=== PATIENT | male | born 1970 | race Two or more races ===

== ENCOUNTER 2019-02-22 20:38 | Inpatient (IN) | payer OTHER ==
[2019-02-22 21:55] VITALS: BMI 30.4
--- NOTE | 2019-02-22 23:22 | HP ---
CIWA Score Nausea/Vomitin Muscle Tremors: 4-Moderate,w/Arms Extend Anxiety: 4-Mod. Anxious/Guarded Agitation: 4-Moderately Restless Paroxysmal Sweats: 3 Orientation: 1-Uncertain about Date Tacttile Disturbances: 2-Mild Itch/Numbness/Burn Auditory Disturbances: 2-Mild Harshness/Frighten (to loud noise) Visual Disturbances: 3-Moderate Sensitivity Headache: 5-Severe CIWA-Ar Total Score: 33 - Admission Criteria OASAS Guidelines: Admission for Medically Managed Detox: Requires at least one of the followin. CIWA greater than 12 2. Seizures within the past 24 hours 3. Delirium tremens within the past 24 hours 4. Hallucinations within the past 24 hours 5. Acute intervention needed for co occurring medical disorder 6. Acute intervention needed for co occurring psychiatric disorder 7. Severe withdrawal that cannot be handled at a lower level of care (continued vomiting, continued diarrhea, abnormal vital signs) requiring intravenous medication and/or fluids 8. Patient presents the following: CIWA greater than 12 Admission Criteria Met: Admission criteria met Admitting History and Physical - Smoking History Smoking history: Never smoked Have you smoked in the past 12 months: No - Alcohol/Substance Use Hx Alcohol Use: Yes (VODKA/WINE/BEER) Admission [facility] Chief Complaint: SEEKING DETOX FOR WORSENING WITHDRAWAL SX'S Allergies/Adverse Reactions: Allergies Allergy/AdvReac Type Severity Reaction Status Date / Time No Known Allergies Allergy Verified 12/25/15 17:29 History of Present Illness: 49 Y.O. MALE WITH ALCOHOLISM HERE FOR DETOX. CLIENT IS REFERRED BY HIS [facility]. HE IS ALSO KNOWN TO THIS PROGRAM. LAST ADMIT 2015. CLIENT DEIES ANY INAPTIENT DETOX SINCE. REPORTS DAILY INTAKE + EYE [employer], + BLACK OUTS, + WITHDRAWAL SEIZURES LAST EPISODE 3 MONTHS AGO. DENIES AVH, SI/HI.REPORTS LONGEST CLEAN TIME 10 YEARS MOST RECENT 1 YEAR RELAPSING A YEAR AGO. LIVES SRO-HOMLESS, UNEMPLOYED- SSI, DENIES LEGALS Exam Limitations: No Limitations - Ebola screening Have you traveled outside of the country in the last 21 days: No (N) Have you had contact with anyone from an Ebola affected area: No Do you have a fever: No - Review of Systems Constitutional: Chills, Loss of Appetite, Malaise, Night Sweats, Changes in sleep EENT: reports: Dental Problems (MISSING TEETH), Throat Pain (SORE) Respiratory: reports: Shortness of Breath Cardiac: reports: No Symptoms Reported, Other (RLE SWELLING) GI: reports: Diarrhea, Nausea, Poor Fluid Intake, Vomiting, Abdominal cramping : reports: No Symptoms Reported Musculoskeletal: reports: Back Pain (CHRONIC) Integumentary: reports: No Symptoms Reported Neuro: reports: Headache, Seizure, Tremors, Unsteady Gait ([place]BUALTES WITH CANE) Endocrine: reports: No Symptoms Reported Hematology: reports: No Symptoms Reported Psychiatric: reports: Orientated x3, Agitated, Anxious, Depressed (DENIES SI/HI) Other Systems: Reviewed and Negative Patient History - Patient Medical History Hx Anemia: No Hx Asthma: Yes (ALBUTEROL INHALER) Hx Chronic Obstructive Pulmonary Disease (COPD): No Hx Cancer: No Hx Cardiac Disorders: No Hx Congestive Heart Failure: No Hx Hypertension: Yes (ON MEDS) Hx Hypercholesterolemia: No Hx Pacemaker: No HX Cerebrovascular Accident: No Hx Seizures: No Hx Dementia: No Hx Diabetes: No Hx Gastrointestinal Disorders: Yes (GERD-PRILOSEC) Hx Liver Disease: No Hx Genitourinary Disorders: No Hx Sexually Transmitted Disorders: No Hx Renal Disease (ESRD): No Hx Thyroid Disease: No Hx Human Immunodeficiency Virus (HIV): Yes (ON MEDS) Hx Hepatitis C: No Hx Depression: Yes (ON MED) Hx Suicide Attempt: No (DENIES) Hx Bipolar Disorder: No Hx Schizophrenia: No - Patient Surgical History Past Surgical History: Yes Hx Neurologic Surgery: No Hx Cataract Extraction: No Hx Cardiac Surgery: No Hx Lung Surgery: No Hx Breast Surgery: No Hx Breast Biopsy: No Hx Abdominal Surgery: Yes (Gastric lap band in 2013) Hx Appendectomy: Yes (1985) Hx Cholecystectomy: No Hx Genitourinary Surgery: No Hx Section: No Hx Orthopedic Surgery: Yes (Partial knee replacement in 05/25) Other Surgical History: RIGHT SHOULDER LIPOMA REMOVED IN 1984 Anesthesia Reaction: No - PPD History Previous Implant?: Yes Documented Results: Negative w/proof Implanted On Prior [facility] Admission?: Yes Date: 03/01/15 Results: 0 mm PPD to be Administered?: Yes - Smoking Cessation Smoking history: Current some day smoker Have you smoked in the past 12 months: Yes Aproximately how many cigarettes per day: 4 Cigars Per Day: 0 Hx Chewing Tobacco Use: No Initiated information on smoking cessation: Yes 'Breaking Loose' booklet given: 02/22/19 - Substance & Tx. History Hx Alcohol Use: Yes Hx Substance Use: Yes Substance Use Type: Alcohol, Cocaine Hx Substance Use Treatment: Yes ([facility]) - Substances abused Alcohol Substance route: Oral Frequency: Daily Amount used: 1 pint and 6 pack of beer Age of first use: 29 Date of last use: 02/22/19 Cocaine Substance route: Smoking Frequency: 3-6 times per week Amount used: 2 to 10 bags Age of first use: 29 Date of last use: 02/21/19 Other Other (specify): PERCOCET Substance route: Oral Frequency: 3-6 times per week Amount used: 10 tabs of 10 mg Age of first use: 29 Date of last use: 02/19/19 Admission Physical Exam BHS - Vital Signs Vital Signs: Vital Signs - 24 hr 02/22/19 21:50 Temperature 98.6 F Pulse Rate 74 Respiratory 19 Rate Blood Pressure 145/97 - Physical General Appearance: Yes: Mild Distress, Tremorous, Irritable, Anxious HEENTM: Yes: EOMI, Normocephalic, Normal Voice, CASANDRA, Pharynx Normal Respiratory: Yes: Chest Non-Tender, Lungs Clear, Normal Breath Sounds, No Respiratory Distress, No Accessory Muscle Use Neck: Yes: No masses,lesions,Nodules, Supple, Trachea in good position Breast: Yes: Breasts Symetrical, No Discharge Cardiology: Yes: Regular Rhythm, Regular Rate, S1, S2 Abdominal: Yes: Non Tender, Soft, Increased Bowel Sounds, Protuberent Genitourinary: Yes: Within Normal Limits Back: Yes: Normal Inspection Musculoskeletal: Yes: full range of Motion, Gait Steady Extremities: Yes: Normal Capillary Refill, Normal Range of Motion, Non-Tender, Tremors Neurological: Yes: Fully Oriented, Alert, Motor Strength 5/5, Depressed Affect Integumentary: Yes: Dry, Warm Lymphatic: Yes: Within Normal Limits - Diagnostic (1) Insomnia Current Visit: No Status: Acute (2) Alcohol dependence with uncomplicated withdrawal Current Visit: No Status: Chronic (3) Asthma Current Visit: No Status: Chronic Qualifiers: Asthma severity: mild intermittent Asthma complication type: uncomplicated Qualified Code(s): J45.20 - Mild intermittent asthma, uncomplicated (4) Cocaine dependence Current Visit: No Status: Chronic Qualifiers: Substance use status: uncomplicated Qualified Code(s): F14.20 - Cocaine dependence, uncomplicated (5) GERD (gastroesophageal reflux disease) Current Visit: No Status: Chronic Qualifiers: Esophagitis presence: without esophagitis Qualified Code(s): K21.9 - Gastro -esophageal reflux disease without esophagitis (6) HIV disease Current Visit: No Status: Chronic (7) Hypertension Current Visit: No Status: Chronic Qualifiers: Hypertension type: essential hypertension Qualified Code(s): I10 - Essential (primary) hypertension Cleared for Admission S - Detox or Rehab [facility] Level of Care: Medically Managed Detox Regimen/Protocol: Librium Claeared for Rehab Admission: No Breathalyzer - Breathalyzer Breathalyzer: 0 Urine Drug Screen - Test Device Lot number: [id number] Expiration date: 10/08/20 - Control Is test valid?: Yes - Results Drug screen NEGATIVE: Yes Urine drug screen results: ROSALVA-Cocaine, BUP-Suboxone Inpatient Rehab Admission - Rehab Decision to Admit Inpatient rehab admission?: No
[2019-02-22] MEDS ORDERED: ALBUTEROL SO4 8 GM HFA INHALER IH PRN (23:26)
[2019-02-22] MEDS ORDERED: MAG HYDROX/AL HYDROX/SIMETH 30 ML UNIT-DOSE CUP PO PRN (23:28)
[2019-02-22] MEDS ORDERED: ACETAMINOPHEN 325 MG TABLET (FP) PO PRN ×2 (23:28)
[2019-02-22] MEDS ORDERED: P-EPHED 60MG/TRIPROLIDI 2.5MG TABLET PO PRN (23:28)
[2019-02-22] MEDS ORDERED: MENTHOL/PHENOL 1 EACH UD MM PRN (23:28)
[2019-02-22] MEDS ORDERED: NICOTINE POLACRILEX 2 MG GUM BUC PRN (23:28)
[2019-02-22] MEDS ORDERED: guaiFENesin 200 MG/10 ML 10 ML UNIT-DOSE CUPS PO PRN (23:28)
[2019-02-22] MEDS ORDERED: MAGNESIUM CITRATE 300 ML BOTTLE PO PRN (23:28)
[2019-02-22] MEDS ORDERED: BISMUTH SUBSALICYLATE 524 MG/30 ML UD PO PRN (23:28)
[2019-02-22] MEDS ORDERED: DICYCLOMINE HCL 10 MG CAPSULE PO PRN (23:28)
[2019-02-22] MEDS ORDERED: hydrOXYzine PAMOATE 25 MG CAPSULE (FP) PO PRN (23:28)
[2019-02-22] MEDS ORDERED: chlordiazePOXIDE HCL 25 MG CAPSULE PO PRN (23:28)
[2019-02-23] MEDS: MELATONIN 5 MG TABLETS PO PRN ×2 (00:37→22:21)
[2019-02-23] MEDS: METHOCARBAMOL 500 MG TABLET PO PRN (00:37)
[2019-02-23] MEDS: IBUPROFEN 400 MG TABLET (FP) PO PRN (00:38)
[2019-02-23] MEDS: chlordiazePOXIDE HCL 25 MG CAPSULE PO SCH ×5 (00:48→22:21)
[2019-02-23] MEDS: PREGABALIN 100 MG CAPSULE PO SCH ×3 (05:30→22:21)
[2019-02-23] MEDS: hydrALAZINE HCL 50 MG TABLET (FP) PO SCH ×3 (06:00→22:21)
[2019-02-23] MEDS ORDERED: valACYclovir HCL 500 MG TABLET (FP) ONE (08:28)
[2019-02-23] MEDS ORDERED: valACYclovir HCL 1000 MG TABLET PO SCH (10:00)
[2019-02-23] MEDS: NICOTINE 14 MG/24 HOURS TOPICAL PATCH TD SCH (10:33)
[2019-02-23] MEDS: PRENATAL VITAMINS W/ FOLIC ACID TABLET (FP) PO SCH (10:34)
[2019-02-23] MEDS: PANTOPRAZOLE 40 MG TABLET (FP) PO SCH (10:34)
--- NOTE | 2019-02-23 10:49 | CONSULT ---
[facility] Psychiatric Consult - Data Date of interview: 02/23/19 Admission source: [facility] Identifying data: Readmission to [facility] for this 49 y/o male referred by his [facility] management for detoxification (JELANI issues : alcohol, cocaine , opiate). Examined at [address] [place] [address]. Patient is single, no children, domiciled ([facility] setting), unemployed and supported on SSI benefits. Substance Abuse History: Discussed in this session. Details in current [facility] report as follows : Smoking history: Current some day smoker. Have you smoked in the past 12 months: Yes. Aproximately how many cigarettes per day: 4. Cigars Per Day: 0. Hx Chewing Tobacco Use: No. Initiated information on smoking cessation: Yes. 'Breaking Loose' booklet given: 02/22/19. - Substance & Tx. History. Hx Alcohol Use: Yes. Hx Substance Use: Yes. Substance Use Type : Alcohol, Cocaine. Hx Substance Use Treatment: Yes ([facility]). - Substances abused. Alcohol. Substance route: Oral. Frequency: Daily. Amount used: 1 pint and 6 pack of beer. Age of first use: 29. Date of last use: 02/22/19. * * Cocaine. Substance route: Smoking. Frequency: 3-6 times per week. Amount used: 2 to 10 bags. Age of first use: 29. Date of last use: 02/21/19. Other. Other (specify): PERCOCET. Substance route: Oral. Frequency: 3-6 times per week. Amount used: 10 tabs of 10 mg. Age of first use: 29. Date of last use: 02/19/19 Medical History: Medical profile is remarkable for bronchial asthma, peripheral neuropathy, HIV infection since 1992 (on ART medications), hypertension, antecedent of abdominal surgery (gastric lap band in 2013), appendectomy, GERD, and history of orthosurgery (partial knee replacement) in 2014. Noted history of excision of lipoma (right shoulder). Psychiatric History: History of two psychiatric hospitalizations ([facility] + [facility]). Diagnosed with Major Depressive Disorder. Mr Kraus has received treatment with effexor + abilify (no recall of doses). Patient reports total non-adherence with medications and OPD care. He denies history of suicide attempts. Additional Comment: Urine drug screen results: ROSALVA-Cocaine, BUP-Suboxone. Noted. Mental Status Exam - Mental Status Exam Alert and Oriented to: Time, Place, Person Cognitive Function: Good Patient Appearance: Well Groomed Mood: Nervous, Withdrawn Affect: Mood Congruent, Constricted Patient Behavior: Fatigued, Appropriate, Cooperative Speech Pattern: Clear Voice Loudness: Normal Thought Process: Goal Oriented Thought Disorder: Not Present Hallucinations: Denies Suicidal Ideation: Denies Homicidal Ideation: Denies Insight/Judgement: Poor Sleep: Poorly, Difficulty falling asleep Appetite: Good Muscle strength/Tone: Normal Gait/Station: Other (not observed; in bed for entire interview) Psychiatric Findings - Problem List ([place] 1, 2,3) (1) Alcohol dependence with uncomplicated withdrawal Current Visit: Yes Status: Acute (2) Heroin dependence Current Visit: Yes Status: Chronic (3) Cocaine dependence Current Visit: Yes Status: Chronic Qualifiers: Substance use status: uncomplicated Qualified Code(s): F14.20 - Cocaine dependence, uncomplicated (4) Cannabis dependence Current Visit: Yes Status: Chronic (5) MDD (major depressive disorder), recurrent episode, mild Current Visit: Yes Status: Chronic (6) Substance induced mood disorder Current Visit: Yes Status: Chronic (7) Insomnia Current Visit: Yes Status: Chronic - Initial Treatment Plan Initial Treatment Plan: Psychoeducation. Sleep hygiene. Detoxification. Resumed : abilify 5 mg po hs + effexor 37.5 mg po daily. Side effects/benefits of both drugs are discussed with the patient. Mr Kraus is in agreement with this plan of care. Observation.
[2019-02-23 12:01] LABS: HEMATOCRIT 45.2 % (35.4-49); HEMOGLOBIN 15.3 GM/dL (11.7-16.9); MCH 29.3 pg (25.7-33.7); MEAN CELL VOLUME 86.2 fl (80-96); MEAN PLT VOLUME 9.2 fl (7.5-11.1); PLATELET COUNT 179 K/MM3 (134-434); RBC 5.25 M/mm3 (4.00-5.60); RDW 13.4 % (11.9-15.9); WHITE BLOOD COUNT 3.4 K/mm3 (4.0-10.0)
[2019-02-23 12:11] LABS: ALBUMIN 3.1 g/dl (3.4-5.0); BILIRUBIN,TOTAL 0.4 mg/dL (0.2-1); BLOOD UREA NITROGEN 10.2 mg/dL (7-18); CALCIUM 8.7 mg/dL (8.5-10.1); CREATININE 1.2 mg/dL (0.55-1.3); POTASSIUM 3.5 mmol/L (3.5-5.1); TOT PROT 6.2 g/dl (6.4-8.2)
--- NOTE | 2019-02-23 15:31 | PN ---
S CIWA - CIWA Score Nausea/Vomitin-Int. Nausea w/Dry Heave Muscle Tremors: 4-Moderate,w/Arms Extend Anxiety: 3 Agitation: 0-Normal Activity Paroxysmal Sweats: 2 Orientation: 0-Oriented Tacttile Disturbances: 1-Very Mild Itch/Numbness Auditory Disturbances: 0-None Visual Disturbances: 0-None Headache: 1-Very Mild CIWA-Ar Total Score: 15 BHS Progress Note (SOAP) Subjective: c/o of nausea, vomiting, chills, sweats, interrupted sleep Objective: 02/23/19 15:33 Vital Signs Temperature 96.7 F L 02/23/19 13:13 Pulse Rate 93 H 02/23/19 13:13 Respiratory Rate 18 02/23/19 13:13 Blood Pressure 117/83 02/23/19 13:13 O2 Sat by Pulse Oximetry (%) Laboratory Last Values WBC 3.4 K/mm3 (4.0-10.0) L 02/23/19 08:33 RBC 5.25 M/mm3 (4.00-5.60) 02/23/19 08:33 Hgb 15.3 GM/dL (11.7-16.9) 02/23/19 08:33 Hct 45.2 % (35.4-49) 02/23/19 08:33 MCV 86.2 fl (80-96) 02/23/19 08:33 MCH 29.3 pg (25.7-33.7) D 02/23/19 08:33 MCHC 34.0 g/dl (32.0-35.9) 02/23/19 08:33 RDW 13.4 % (11.9-15.9) 02/23/19 08:33 Plt Count 179 K/MM3 (134-434) 02/23/19 08:33 MPV 9.2 fl (7.5-11.1) 02/23/19 08:33 Sodium 144 mmol/L (136-145) 02/23/19 08:33 Potassium 3.5 mmol/L (3.5-5.1) 02/23/19 08:33 Chloride 109 mmol/L (98-107) H 02/23/19 08:33 Carbon Dioxide 29 mmol/L (21-32) 02/23/19 08:33 Anion Gap 6 MMOL/L (8-16) L 02/23/19 08:33 BUN 10.2 mg/dL (7-18) 02/23/19 08:33 Creatinine 1.2 mg/dL (0.55-1.3) 02/23/19 08:33 Est GFR (CKD-EPI)AfAm 81.23 02/23/19 08:33 Est GFR (CKD-EPI)NonAf 70.09 02/23/19 08:33 Random Glucose 107 mg/dL (74-106) H 02/23/19 08:33 Calcium 8.7 mg/dL (8.5-10.1) 02/23/19 08:33 Total Bilirubin 0.4 mg/dL (0.2-1) 02/23/19 08:33 AST 19 U/L (15-37) 02/23/19 08:33 ALT 20 U/L (13-61) 02/23/19 08:33 Alkaline Phosphatase 93 U/L (45-117) 02/23/19 08:33 Total Protein 6.2 g/dl (6.4-8.2) L 02/23/19 08:33 Albumin 3.1 g/dl (3.4-5.0) L 02/23/19 08:33 Assessment: 02/23/19 15:33 Aox3 no acute distress, anxious EENT WNL full ROM ambulating in the unit withdrawal sx Plan: increase PO fluids continue detox continue to monitor
[2019-02-23] MEDS: ARIPiprazole 5 MG TABLET (FP) PO SCH (22:21)
[2019-02-23] MEDS: valACYclovir HCL 500 MG TABLET (FP) PO SCH (22:21)
[2019-02-23] MEDS: THIAMINE HCL 100 MG TABLET (FP) PO SCH (22:21)
[2019-02-24] MEDS: PREGABALIN 100 MG CAPSULE PO SCH ×3 (06:01→21:54)
[2019-02-24] MEDS: chlordiazePOXIDE HCL 25 MG CAPSULE PO SCH ×4 (06:01→21:59)
[2019-02-24] MEDS: hydrALAZINE HCL 50 MG TABLET (FP) PO SCH ×3 (06:02→21:54)
[2019-02-24] MEDS: PRENATAL VITAMINS W/ FOLIC ACID TABLET (FP) PO SCH (10:38)
[2019-02-24] MEDS: VENLAFAXINE HCL 37.5 MG E.R. CAPSULE (FP) PO SCH (10:38)
[2019-02-24] MEDS: valACYclovir HCL 500 MG TABLET (FP) PO SCH ×2 (10:38→21:54)
[2019-02-24] MEDS: PANTOPRAZOLE 40 MG TABLET (FP) PO SCH (10:38)
[2019-02-24] MEDS: NICOTINE 14 MG/24 HOURS TOPICAL PATCH TD SCH (10:39)
--- NOTE | 2019-02-24 11:12 | PN ---
[facility] CIWA - CIWA Score Nausea/Vomitin-Mild Nausea/No Vomiting Muscle Tremors: 3 Anxiety: 3 Agitation: 2 Paroxysmal Sweats: 2 Orientation: 1-Uncertain about Date Tacttile Disturbances: 0-None Auditory Disturbances: 0-None Visual Disturbances: 0-None Headache: 0-None Present CIWA-Ar Total Score: 12 S Progress Note (SOAP) Subjective: doing well with librium detox regimen ate breakfast resting on bed comfortably tolerate food and fluid well Objective: 02/24/19 11:12 Vital Signs Temperature 97.0 F L 02/24/19 09:17 Pulse Rate 91 H 02/24/19 09:17 Respiratory Rate 18 02/24/19 09:17 Blood Pressure 137/71 02/24/19 09:17 O2 Sat by Pulse Oximetry (%) Laboratory Last Values WBC 3.4 K/mm3 (4.0-10.0) L 02/23/19 08:33 RBC 5.25 M/mm3 (4.00-5.60) 02/23/19 08:33 Hgb 15.3 GM/dL (11.7-16.9) 02/23/19 08:33 Hct 45.2 % (35.4-49) 02/23/19 08:33 MCV 86.2 fl (80-96) 02/23/19 08:33 MCH 29.3 pg (25.7-33.7) D 02/23/19 08:33 MCHC 34.0 g/dl (32.0-35.9) 02/23/19 08:33 RDW 13.4 % (11.9-15.9) 02/23/19 08:33 Plt Count 179 K/MM3 (134-434) 02/23/19 08:33 MPV 9.2 fl (7.5-11.1) 02/23/19 08:33 Sodium 144 mmol/L (136-145) 02/23/19 08:33 Potassium 3.5 mmol/L (3.5-5.1) 02/23/19 08:33 Chloride 109 mmol/L (98-107) H 02/23/19 08:33 Carbon Dioxide 29 mmol/L (21-32) 02/23/19 08:33 Anion Gap 6 MMOL/L (8-16) L 02/23/19 08:33 BUN 10.2 mg/dL (7-18) 02/23/19 08:33 Creatinine 1.2 mg/dL (0.55-1.3) 02/23/19 08:33 Est GFR (CKD-EPI)AfAm 81.23 02/23/19 08:33 Est GFR (CKD-EPI)NonAf 70.09 02/23/19 08:33 Random Glucose 107 mg/dL (74-106) H 02/23/19 08:33 Calcium 8.7 mg/dL (8.5-10.1) 02/23/19 08:33 Total Bilirubin 0.4 mg/dL (0.2-1) 02/23/19 08:33 AST 19 U/L (15-37) 02/23/19 08:33 ALT 20 U/L (13-61) 02/23/19 08:33 Alkaline Phosphatase 93 U/L (45-117) 02/23/19 08:33 Total Protein 6.2 g/dl (6.4-8.2) L 02/23/19 08:33 Albumin 3.1 g/dl (3.4-5.0) L 02/23/19 08:33 lab noted Assessment: 02/24/19 11:12 alcohol withdrawal sx Plan: continue libirum detox regimen
[2019-02-24] MEDS: METHOCARBAMOL 500 MG TABLET PO PRN (21:53)
[2019-02-24] MEDS: ARIPiprazole 5 MG TABLET (FP) PO SCH (21:54)
[2019-02-24] MEDS: THIAMINE HCL 100 MG TABLET (FP) PO SCH (21:54)
[2019-02-24] MEDS: MELATONIN 5 MG TABLETS PO PRN (21:55)
[2019-02-25] MEDS ORDERED: chlordiazePOXIDE HCL 10 MG CAPSULE PO PRN
[2019-02-25] MEDS: hydrALAZINE HCL 50 MG TABLET (FP) PO SCH ×3 (05:23→22:14)
[2019-02-25] MEDS: PREGABALIN 100 MG CAPSULE PO SCH ×3 (05:23→22:12)
[2019-02-25] MEDS: chlordiazePOXIDE HCL 10 MG CAPSULE PO SCH ×4 (05:24→22:13)
[2019-02-25] MEDS: valACYclovir HCL 500 MG TABLET (FP) PO SCH ×2 (10:16→22:12)
[2019-02-25] MEDS: VENLAFAXINE HCL 37.5 MG E.R. CAPSULE (FP) PO SCH (10:17)
[2019-02-25] MEDS: NICOTINE 14 MG/24 HOURS TOPICAL PATCH TD SCH (10:17)
[2019-02-25] MEDS: PRENATAL VITAMINS W/ FOLIC ACID TABLET (FP) PO SCH (10:17)
[2019-02-25] MEDS: PANTOPRAZOLE 40 MG TABLET (FP) PO SCH (10:17)
[2019-02-25] MEDS: MAGNESIUM HYDROX 2400MG/30ML ORAL SUSPENSION 30 ML CUP PO PRN ×2 (10:22→16:21)
[2019-02-25] MEDS: METHOCARBAMOL 500 MG TABLET PO PRN (10:23)
[2019-02-25] MEDS: ONDANSETRON *ODT* 4 MG TABLET SL PRN (10:23)
--- NOTE | 2019-02-25 11:59 | PN ---
S CIWA - CIWA Score Nausea/Vomitin Muscle Tremors: 2 Anxiety: 2 Agitation: 1-Slight > Activity Paroxysmal Sweats: 3 Orientation: 0-Oriented Tacttile Disturbances: 1-Very Mild Itch/Numbness Auditory Disturbances: 0-None Visual Disturbances: 1-Very Mild Sensitivity Headache: 0-None Present CIWA-Ar Total Score: 13 BHS Progress Note (SOAP) Subjective: c/o nausea, interrupted sleep, back pain Objective: 02/25/19 12:02 Vital Signs Temperature 97.8 F 02/25/19 09:24 Pulse Rate 75 02/25/19 09:24 Respiratory Rate 18 02/25/19 09:24 Blood Pressure 128/83 02/25/19 09:24 O2 Sat by Pulse Oximetry (%) Laboratory Last Values WBC 3.4 K/mm3 (4.0-10.0) L 02/23/19 08:33 RBC 5.25 M/mm3 (4.00-5.60) 02/23/19 08:33 Hgb 15.3 GM/dL (11.7-16.9) 02/23/19 08:33 Hct 45.2 % (35.4-49) 02/23/19 08:33 MCV 86.2 fl (80-96) 02/23/19 08:33 MCH 29.3 pg (25.7-33.7) D 02/23/19 08:33 MCHC 34.0 g/dl (32.0-35.9) 02/23/19 08:33 RDW 13.4 % (11.9-15.9) 02/23/19 08:33 Plt Count 179 K/MM3 (134-434) 02/23/19 08:33 MPV 9.2 fl (7.5-11.1) 02/23/19 08:33 Sodium 144 mmol/L (136-145) 02/23/19 08:33 Potassium 3.5 mmol/L (3.5-5.1) 02/23/19 08:33 Chloride 109 mmol/L (98-107) H 02/23/19 08:33 Carbon Dioxide 29 mmol/L (21-32) 02/23/19 08:33 Anion Gap 6 MMOL/L (8-16) L 02/23/19 08:33 BUN 10.2 mg/dL (7-18) 02/23/19 08:33 Creatinine 1.2 mg/dL (0.55-1.3) 02/23/19 08:33 Est GFR (CKD-EPI)AfAm 81.23 02/23/19 08:33 Est GFR (CKD-EPI)NonAf 70.09 02/23/19 08:33 Random Glucose 107 mg/dL (74-106) H 02/23/19 08:33 Calcium 8.7 mg/dL (8.5-10.1) 02/23/19 08:33 Total Bilirubin 0.4 mg/dL (0.2-1) 02/23/19 08:33 AST 19 U/L (15-37) 02/23/19 08:33 ALT 20 U/L (13-61) 02/23/19 08:33 Alkaline Phosphatase 93 U/L (45-117) 02/23/19 08:33 Total Protein 6.2 g/dl (6.4-8.2) L 02/23/19 08:33 Albumin 3.1 g/dl (3.4-5.0) L 02/23/19 08:33 RPR Titer Nonreactive (NONREACTIVE) 02/23/19 08:33 Assessment: 02/25/19 12:02 AOx3 no acute distress EENMT WNL + back pain Full ROM no gait disturbance ambulating in the unit withdrawal sx Plan: increase po fluids continue detox continue to monitor
[2019-02-25] MEDS: ARIPiprazole 5 MG TABLET (FP) PO SCH (22:13)
[2019-02-25] MEDS: THIAMINE HCL 100 MG TABLET (FP) PO SCH (22:13)
[2019-02-25] MEDS: MELATONIN 5 MG TABLETS PO PRN (22:16)
--- NOTE | 2019-02-25 22:19 | EKG ---
Test Reason : Blood Pressure : / mmHG Vent. Rate : 067 BPM Atrial Rate : 067 BPM P-R Int : 472 ms QRS Dur : 092 ms QT Int : 408 ms P-R-T Axes : 066 017 022 degrees QTc Int : 431 ms SINUS RHYTHM WITH 1ST DEGREE A-V BLOCK OTHERWISE NORMAL ECG NO PREVIOUS ECGS AVAILABLE Confirmed by MD HEIDY, JEANNIE ([id number]) on 02/25/2019 10:18:57 PM Referred By: Alonso Funk Confirmed By:JEANNIE MOODY MD
[2019-02-26] MEDS: PREGABALIN 100 MG CAPSULE PO SCH ×3 (06:11→22:17)
[2019-02-26] MEDS: hydrALAZINE HCL 50 MG TABLET (FP) PO SCH ×3 (06:11→22:15)
[2019-02-26] MEDS: chlordiazePOXIDE HCL 10 MG CAPSULE PO SCH ×2 (06:12→17:43)
[2019-02-26] MEDS: valACYclovir HCL 500 MG TABLET (FP) PO SCH ×2 (10:42→22:15)
[2019-02-26] MEDS: NICOTINE 14 MG/24 HOURS TOPICAL PATCH TD SCH (10:42)
[2019-02-26] MEDS: PRENATAL VITAMINS W/ FOLIC ACID TABLET (FP) PO SCH (10:43)
[2019-02-26] MEDS: PANTOPRAZOLE 40 MG TABLET (FP) PO SCH (10:43)
[2019-02-26] MEDS: VENLAFAXINE HCL 37.5 MG E.R. CAPSULE (FP) PO SCH (10:43)
--- NOTE | 2019-02-26 12:49 | PN ---
S CIWA - CIWA Score Nausea/Vomitin-Mild Nausea/No Vomiting Muscle Tremors: 2 Anxiety: 2 Agitation: 2 Paroxysmal Sweats: 2 Orientation: 0-Oriented Tacttile Disturbances: 0-None Auditory Disturbances: 0-None Visual Disturbances: 0-None Headache: 1-Very Mild CIWA-Ar Total Score: 10 BHS Progress Note (SOAP) Objective: Pt admitted for alcohol detox, no complaints today. O: Vital Signs - 24 hr 02/25/19 02/25/19 02/25/19 13:38 17:46 21:20 Temperature 97.3 F L 97.7 F 96.8 F L Pulse Rate 101 H 80 73 Respiratory 18 18 18 Rate Blood Pressure 124/86 123/79 144/90 02/26/19 02/26/19 02/26/19 00:30 03:30 06:06 Temperature 97.4 F L Pulse Rate 76 Respiratory 18 18 18 Rate Blood Pressure 145/90 02/26/19 09:47 Temperature 97.5 F L Pulse Rate 80 Respiratory 18 Rate Blood Pressure 139/97 Laboratory Tests 02/23/19 02/23/19 02/23/19 08:33 08:33 08:33 WBC 3.4 L RBC 5.25 Hgb 15.3 Hct 45.2 MCV 86.2 MCH 29.3 D MCHC 34.0 RDW 13.4 Plt Count 179 MPV 9.2 Sodium 144 Potassium 3.5 Chloride 109 H Carbon Dioxide 29 Anion Gap 6 L BUN 10.2 Creatinine 1.2 Est GFR (CKD-EPI)AfAm 81.23 Est GFR (CKD-EPI)NonAf 70.09 Random Glucose 107 H Calcium 8.7 Total Bilirubin 0.4 AST 19 ALT 20 Alkaline Phosphatase 93 Total Protein 6.2 L Albumin 3.1 L RPR Titer Nonreactive a/p: pt to continue alcohol detox protocol- no complaints today
[2019-02-26] MEDS: IBUPROFEN 400 MG TABLET (FP) PO PRN (15:25)
[2019-02-26] MEDS: METHOCARBAMOL 500 MG TABLET PO PRN ×2 (15:26→22:17)
[2019-02-26] MEDS: ONDANSETRON *ODT* 4 MG TABLET SL PRN (18:49)
[2019-02-26] MEDS: THIAMINE HCL 100 MG TABLET (FP) PO SCH (22:15)
[2019-02-26] MEDS: ARIPiprazole 5 MG TABLET (FP) PO SCH (22:15)
[2019-02-26] MEDS: MELATONIN 5 MG TABLETS PO PRN (22:17)
[2019-02-27] MEDS ORDERED: chlordiazePOXIDE HCL 10 MG CAPSULE PO ONE (05:00)
[2019-02-27] MEDS: PREGABALIN 100 MG CAPSULE PO SCH ×3 (05:18→22:15)
[2019-02-27] MEDS: hydrALAZINE HCL 50 MG TABLET (FP) PO SCH ×3 (05:19→22:15)
[2019-02-27] MEDS: PRENATAL VITAMINS W/ FOLIC ACID TABLET (FP) PO SCH (10:49)
[2019-02-27] MEDS: PANTOPRAZOLE 40 MG TABLET (FP) PO SCH (10:49)
[2019-02-27] MEDS: VENLAFAXINE HCL 37.5 MG E.R. CAPSULE (FP) PO SCH (10:49)
[2019-02-27] MEDS: valACYclovir HCL 500 MG TABLET (FP) PO SCH ×2 (10:49→22:16)
[2019-02-27] MEDS: NICOTINE 14 MG/24 HOURS TOPICAL PATCH TD SCH (10:49)
--- NOTE | 2019-02-27 11:21 | DS ---
[facility] Detox Discharge Summary Admission Date: 02/23/19 - Physical Exam Results Vital Signs: Vital Signs Temperature 97.9 F 02/27/19 09:50 Pulse Rate 77 02/27/19 09:50 Respiratory Rate 18 02/27/19 09:50 Blood Pressure 142/98 02/27/19 09:50 O2 Sat by Pulse Oximetry (%) Pertinent Admission Physical Exam Findings: ate breakfast no trouble chewing swallowing alcohol withdrawal sx Laboratory Last Values WBC 3.4 K/mm3 (4.0-10.0) L 02/23/19 08:33 RBC 5.25 M/mm3 (4.00-5.60) 02/23/19 08:33 Hgb 15.3 GM/dL (11.7-16.9) 02/23/19 08:33 Hct 45.2 % (35.4-49) 02/23/19 08:33 MCV 86.2 fl (80-96) 02/23/19 08:33 MCH 29.3 pg (25.7-33.7) D 02/23/19 08:33 MCHC 34.0 g/dl (32.0-35.9) 02/23/19 08:33 RDW 13.4 % (11.9-15.9) 02/23/19 08:33 Plt Count 179 K/MM3 (134-434) 02/23/19 08:33 MPV 9.2 fl (7.5-11.1) 02/23/19 08:33 Sodium 144 mmol/L (136-145) 02/23/19 08:33 Potassium 3.5 mmol/L (3.5-5.1) 02/23/19 08:33 Chloride 109 mmol/L (98-107) H 02/23/19 08:33 Carbon Dioxide 29 mmol/L (21-32) 02/23/19 08:33 Anion Gap 6 MMOL/L (8-16) L 02/23/19 08:33 BUN 10.2 mg/dL (7-18) 02/23/19 08:33 Creatinine 1.2 mg/dL (0.55-1.3) 02/23/19 08:33 Est GFR (CKD-EPI)AfAm 81.23 02/23/19 08:33 Est GFR (CKD-EPI)NonAf 70.09 02/23/19 08:33 Random Glucose 107 mg/dL (74-106) H 02/23/19 08:33 Calcium 8.7 mg/dL (8.5-10.1) 02/23/19 08:33 Total Bilirubin 0.4 mg/dL (0.2-1) 02/23/19 08:33 AST 19 U/L (15-37) 02/23/19 08:33 ALT 20 U/L (13-61) 02/23/19 08:33 Alkaline Phosphatase 93 U/L (45-117) 02/23/19 08:33 Total Protein 6.2 g/dl (6.4-8.2) L 02/23/19 08:33 Albumin 3.1 g/dl (3.4-5.0) L 02/23/19 08:33 RPR Titer Nonreactive (NONREACTIVE) 02/23/19 08:33 lab noted - Treatment Patient has Accepted a Rehab Referral [facility] - Medication Discharge Medications: Ambulatory Orders Aripiprazole [Abilify] 10 mg PO DAILY 03/05/15 Albuterol Sulfate Inhaler - [Ventolin HFA Inhaler -] 0 puff IH Q4HPO PRN #1 inhaler 03/21/15 Omeprazole [Prilosec] 40 mg PO DAILY 12/25/15 Pregabalin [Lyrica -] 100 mg PO TID 12/25/15 Valacyclovir HCl [Valtrex -] 1,000 mg PO BID 12/25/15 hydrALAZINE HCL [Apresoline -] 50 mg PO TID 12/25/15 Venlafaxine HCl ER [Effexor Xr -] 37.5 mg PO DAILY #30 cap.er.24h 12/26/15 Bictegrav/Emtricit/Tenofov Ala [Biktarvy 50-200-25 mg Tablet] 1 mg PO DAILY - Diagnosis (1) Alcohol dependence with uncomplicated withdrawal Current Visit: Yes Status: Acute (2) Substance induced mood disorder Current Visit: Yes Status: Suspected (3) Asthma Current Visit: Yes Status: Chronic Qualifiers: Asthma severity: mild Asthma persistence: intermittent Asthma complication type: with status asthmaticus Qualified Code(s): J45.22 - Mild intermittent asthma with status asthmaticus (4) GERD (gastroesophageal reflux disease) Current Visit: Yes Status: Chronic Qualifiers: Esophagitis presence: without esophagitis Qualified Code(s): K21.9 - Gastro -esophageal reflux disease without esophagitis (5) HIV disease Current Visit: Yes Status: Chronic (6) Hypertension Current Visit: Yes Status: Chronic Qualifiers: Hypertension type: essential hypertension Qualified Code(s): I10 - Essential (primary) hypertension - AMA Did Patient Leave Against Medical Advice: No CIWA Score - CIWA Score Nausea/Vomitin-No Nausea/No Vomiting Muscle Tremors: 1-None Visible, but [place] Anxiety: 1-Mildly Anxious Agitation: 1-Slight > Activity Paroxysmal Sweats: 1-Minimal Palms Moist Orientation: 0-Oriented Tacttile Disturbances: 0-None Auditory Disturbances: 0-None Visual Disturbances: 0-None Headache: 1-Very Mild CIWA-Ar Total Score: 5
--- NOTE | 2019-02-27 11:37 | PN ---
[facility] CIWA - CIWA Score Nausea/Vomitin-No Nausea/No Vomiting Muscle Tremors: 2 Anxiety: 2 Agitation: 2 Paroxysmal Sweats: 1-Minimal Palms Moist Orientation: 0-Oriented Tacttile Disturbances: 0-None Auditory Disturbances: 1-Very Mild Visual Disturbances: 0-None Headache: 0-None Present CIWA-Ar Total Score: 8 S Progress Note (SOAP) Subjective: 49 years old male admitted on 02/22/19 for alcohol withdrawal sx management doing well with librium detox regimen less tremor mild anxiety wheezing bilaterally on auscultation encourage ventolin and possible albuteral nebulizer Objective: 02/27/19 11:41 Vital Signs Temperature 97.9 F 02/27/19 09:50 Pulse Rate 77 02/27/19 09:50 Respiratory Rate 18 02/27/19 09:50 Blood Pressure 142/98 02/27/19 09:50 O2 Sat by Pulse Oximetry (%) Laboratory Last Values WBC 3.4 K/mm3 (4.0-10.0) L 02/23/19 08:33 RBC 5.25 M/mm3 (4.00-5.60) 02/23/19 08:33 Hgb 15.3 GM/dL (11.7-16.9) 02/23/19 08:33 Hct 45.2 % (35.4-49) 02/23/19 08:33 MCV 86.2 fl (80-96) 02/23/19 08:33 MCH 29.3 pg (25.7-33.7) D 02/23/19 08:33 MCHC 34.0 g/dl (32.0-35.9) 02/23/19 08:33 RDW 13.4 % (11.9-15.9) 02/23/19 08:33 Plt Count 179 K/MM3 (134-434) 02/23/19 08:33 MPV 9.2 fl (7.5-11.1) 02/23/19 08:33 Sodium 144 mmol/L (136-145) 02/23/19 08:33 Potassium 3.5 mmol/L (3.5-5.1) 02/23/19 08:33 Chloride 109 mmol/L (98-107) H 02/23/19 08:33 Carbon Dioxide 29 mmol/L (21-32) 02/23/19 08:33 Anion Gap 6 MMOL/L (8-16) L 02/23/19 08:33 BUN 10.2 mg/dL (7-18) 02/23/19 08:33 Creatinine 1.2 mg/dL (0.55-1.3) 02/23/19 08:33 Est GFR (CKD-EPI)AfAm 81.23 02/23/19 08:33 Est GFR (CKD-EPI)NonAf 70.09 02/23/19 08:33 Random Glucose 107 mg/dL (74-106) H 02/23/19 08:33 Calcium 8.7 mg/dL (8.5-10.1) 02/23/19 08:33 Total Bilirubin 0.4 mg/dL (0.2-1) 02/23/19 08:33 AST 19 U/L (15-37) 02/23/19 08:33 ALT 20 U/L (13-61) 02/23/19 08:33 Alkaline Phosphatase 93 U/L (45-117) 02/23/19 08:33 Total Protein 6.2 g/dl (6.4-8.2) L 02/23/19 08:33 Albumin 3.1 g/dl (3.4-5.0) L 02/23/19 08:33 RPR Titer Nonreactive (NONREACTIVE) 02/23/19 08:33 lab noted mild bp elevation Assessment: 02/27/19 11:41 alcohol withdrawal sx asthma hypertension Plan: librium detox regimen ventolin nebulizer prn clonidine 0.1 mg po prn for hypertensio
[2019-02-27] MEDS ORDERED: ALBUTEROL SO4 0.083% IH SOL 2.5 MG/3 ML VIAL.NEB. NEB PRN (11:39)
[2019-02-27] MEDS ORDERED: cloNIDine HCL 0.1 MG TABLET PO PRN (11:43)
[2019-02-27] MEDS: THIAMINE HCL 100 MG TABLET (FP) PO SCH (22:15)
[2019-02-27] MEDS: ARIPiprazole 5 MG TABLET (FP) PO SCH (22:16)
[2019-02-27] MEDS: MELATONIN 5 MG TABLETS PO PRN (22:16)
[2019-02-28] MEDS: hydrALAZINE HCL 50 MG TABLET (FP) PO SCH ×3 (05:37→21:21)
[2019-02-28] MEDS: PREGABALIN 100 MG CAPSULE PO SCH ×3 (05:37→21:21)
[2019-02-28] MEDS: NICOTINE 14 MG/24 HOURS TOPICAL PATCH TD SCH (10:17)
[2019-02-28] MEDS: PRENATAL VITAMINS W/ FOLIC ACID TABLET (FP) PO SCH (10:17)
[2019-02-28] MEDS: VENLAFAXINE HCL 37.5 MG E.R. CAPSULE (FP) PO SCH (10:17)
[2019-02-28] MEDS: PANTOPRAZOLE 40 MG TABLET (FP) PO SCH (10:17)
[2019-02-28] MEDS: valACYclovir HCL 500 MG TABLET (FP) PO SCH ×2 (10:17→21:21)
--- NOTE | 2019-02-28 12:17 | HP ---
[facility] Rehab Assess/Revision - Admission History Admitted to Rehab from: [facility] Date of Admission to Rehab: 02/28/19 - Vital signs Vital Signs: Vital Signs Period Temp Pulse Resp BP Sys/Herring Pulse Ox Last 24 Hr 97.0 F-99.1 F 64-87 18-18 104-140/77-90 - Findings Detox History & Physical reviewed: Yes Concur with findings: Yes Comments/Additional Findings: transferred from detox to rehab admission as per protocol Inpatient Rehab Admission - Rehab Decision to Admit Inpatient rehab admission?: Yes - Initial Determination Are CD services needed?: Yes Free of communicable disease: Yes Not in need of hospitalization: Yes - Rehab Admission Criteria Previous failed treatment: Yes Poor recovery environment: Yes Comorbidities: Yes Lacks judgement: Yes Patient is meeting Inpatient Rehab admission criteria:: Yes
[2019-02-28 17:14] LABS: URINE APPEARANCE CLEAR; URINE BILIRUBIN NEGATIVE (NEGATIVE); URINE COLOR YELLOW; URINE GLUCOSE (UA) NEGATIVE (NEGATIVE); URINE KETONE NEGATIVE (NEGATIVE); URINE LEUK ESTERASE NEGATIVE (NEGATIVE); URINE NITRITE NEGATIVE (NEGATIVE); URINE PROTEIN NEGATIVE (NEGATIVE); URINE UROBILINOGEN 0.2 mg/dL (0.2-1.0)
[2019-02-28] MEDS: THIAMINE HCL 100 MG TABLET (FP) PO SCH (21:20)
[2019-02-28] MEDS: ARIPiprazole 5 MG TABLET (FP) PO SCH (21:21)
[2019-02-28] MEDS: METHOCARBAMOL 500 MG TABLET PO PRN (21:21)
[2019-02-28] MEDS: MELATONIN 5 MG TABLETS PO PRN (21:21)
[2019-03-01] MEDS: hydrALAZINE HCL 50 MG TABLET (FP) PO SCH (06:17)
[2019-03-01] MEDS: PREGABALIN 100 MG CAPSULE PO SCH (06:17)
[2019-03-01 07:03] VITALS: BP 127/75; PULSE 77; TEMP 97.6
[2019-03-01] MEDS ORDERED: PT OWN MED DRAWER 7, Y5N ONE (09:09)
[2019-03-01] MEDS: PRENATAL VITAMINS W/ FOLIC ACID TABLET (FP) PO SCH (10:22)
[2019-03-01] MEDS: VENLAFAXINE HCL 37.5 MG E.R. CAPSULE (FP) PO SCH (10:22)
[2019-03-01] MEDS: NICOTINE 14 MG/24 HOURS TOPICAL PATCH TD SCH (10:22)
[2019-03-01] MEDS: valACYclovir HCL 500 MG TABLET (FP) PO SCH (10:22)
[2019-03-01] MEDS: PANTOPRAZOLE 40 MG TABLET (FP) PO SCH (10:22)
--- NOTE | 2019-03-01 13:23 | DS ---
[facility] Rehab Discharge Summary - [facility] Rehab Discharge Summary Admission Date: 02/23/19 Discharge Date: 03/01/19 - History Present History: Alcohol dependence, Cannabis dependence, Cocaine dependence Pertinent Past History: 49 Y.O. MALE WITH ALCOHOLISM. KNOWN TO THIS PROGRAM. LAST ADMIT 2015. CLIENT DENIES ANY INAPTIENT DETOX SINCE. REPORTS DAILY INTAKE + EYE KETTLE GIRL, + BLACK OUTS, + WITHDRAWAL SEIZURES LAST EPISODE 3 MONTHS AGO. DENIES AVH, SI/ HI.REPORTS LONGEST CLEAN TIME 10 YEARS MOST RECENT 1 YEAR RELAPSING A YEAR AGO. LIVES [place]OML[place], UNEMPLOYED- SSI, DENIES LEGALS - Discharge Physical Exam Vital Signs: Vital Signs Temperature 97.6 F 03/01/19 07:02 Pulse Rate 77 03/01/19 07:02 Respiratory Rate 18 03/01/19 07:02 Blood Pressure 127/75 03/01/19 07:02 O2 Sat by Pulse Oximetry (%) Pertinent Admission Physical Exam Findings: Physical General Appearance: no apparent distress HEENTM: Normocephalic, Respiratory: Lungs Clear, Neck: Supple, Trachea in good position Cardiology: S1, S2 Abdominal: Yes: Non Tender, Soft, +Bowel Sounds, Musculoskeletal:full range of Motion, Gait Steady Neurological: CN 2-12 intact - Treatment Discharge Condition: Discharge condition good (Medically stable for discharge. Patient does not have an aftercare referral and states that he will arrange it himself between his PCP and psychiatric provider.) - Medication Discharge Medications: Ambulatory Orders Aripiprazole [Abilify] 10 mg PO DAILY 03/05/15 Albuterol Sulfate Inhaler - [Ventolin HFA Inhaler -] 0 puff IH Q4HPO PRN #1 inhaler 03/21/15 Omeprazole [Prilosec] 40 mg PO DAILY 12/25/15 Pregabalin [Lyrica -] 100 mg PO TID 12/25/15 Valacyclovir HCl [Valtrex -] 1,000 mg PO BID 12/25/15 hydrALAZINE HCL [Apresoline -] 50 mg PO TID 12/25/15 Venlafaxine HCl ER [Effexor Xr -] 37.5 mg PO DAILY #30 cap.er.24h 12/26/15 Bictegrav/Emtricit/Tenofov Ala [Biktarvy 50-200-25 mg Tablet] 1 mg PO DAILY - Medication-Assisted Treatment (MAT) Medication-Assisted Treatment (MAT): No - Discharge Instructions Diet, activity, other medical instructions: Diet: as tolerated Activity: as tolerated Other medical instructions: Please follow up with PCP, psychiatric provider and attend AA meetings. - Diagnosis (1) Alcohol dependence with uncomplicated withdrawal Current Visit: Yes Status: Chronic (2) Cannabis dependence Current Visit: Yes Status: Chronic (3) Cocaine dependence Current Visit: Yes Status: Chronic Qualifiers: Substance use status: uncomplicated Qualified Code(s): F14.20 - Cocaine dependence, uncomplicated (4) Heroin dependence Current Visit: Yes Status: Chronic - Follow-up Referral Minutes to complete discharge: 15 - AMA Did Patient Leave Against Medical Advice: No
== END 2019-03-01 13:35 | disposition home or self-care (01) | DRG 895 ==
LOC: YASAS 20:38 → Y3N 02-23 00:04 → Y3W 02-28 13:04
PROVIDERS: ADMIT Allergy & Immunology; ATTEND Psychiatry & Neurology Psychiatry
PROC: HZ2ZZZZ Detoxification Services for Substance Abuse Treatment (ICD-10-PCS; principal; 2019-02-23)
PROC: HZ42ZZZ Group Counseling for Substance Abuse Treatment, Cognitive-Behavioral (ICD-10-PCS; 2019-02-28)
DX: F19.230 Other psychoactive substance dependence with withdrawal, uncomplicated (principal); F11.20 Opioid dependence, uncomplicated; F14.20 Cocaine dependence, uncomplicated; F33.1 Major depressive disorder, recurrent, moderate; F10.230 Alcohol dependence with withdrawal, uncomplicated; F12.20 Cannabis dependence, uncomplicated; F19.24 Other psychoactive substance dependence with psychoactive substance-induced mood disorder; I10 Essential (primary) hypertension; J45.909 Unspecified asthma, uncomplicated; G47.00 Insomnia, unspecified; Z21 Asymptomatic human immunodeficiency virus [HIV] infection status; G62.9 Polyneuropathy, unspecified; K21.9 Gastro-esophageal reflux disease without esophagitis; Z98.84 Bariatric surgery status
CPT/HCPCS: 36415; 80053; 81003; 85027; 86593; 93005; 93010; Q0162

== ENCOUNTER 2019-06-19 19:47 | Inpatient (IN) | payer OTHER ==
[2019-06-19 20:48] VITALS: BMI 33.3
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
[2019-06-19] MEDS ORDERED: ALBUTEROL SO4 HFA INHALER IH PRN (22:02)
[2019-06-19] MEDS ORDERED: NICOTINE POLACRILEX 2 MG GUM BUC PRN (22:03)
[2019-06-19] MEDS ORDERED: BISMUTH SUBSALICYLATE 524 MG/30 ML UD PO PRN (22:03)
[2019-06-19] MEDS ORDERED: chlordiazePOXIDE HCL 25 MG CAPSULE PO PRN (22:03)
[2019-06-19] MEDS ORDERED: MAGNESIUM CITRATE 300 ML BOTTLE PO PRN (22:03)
[2019-06-19] MEDS ORDERED: MAGNESIUM HYDROX 2400MG/30ML ORAL SUSPENSION 30 ML CUP PO PRN (22:03)
[2019-06-19] MEDS ORDERED: ACETAMINOPHEN 325 MG TABLET (FP) PO PRN ×2 (22:03)
[2019-06-19] MEDS ORDERED: DICYCLOMINE HCL 10 MG CAPSULE PO PRN (22:03)
[2019-06-19] MEDS ORDERED: P-EPHED 60MG/TRIPROLIDI 2.5MG TABLET PO PRN (22:03)
[2019-06-19] MEDS ORDERED: guaiFENesin 200 MG/10 ML 10 ML UNIT-DOSE CUPS PO PRN (22:03)
[2019-06-19] MEDS ORDERED: MENTHOL/PHENOL 1 EACH UD MM PRN (22:03)
[2019-06-19] MEDS ORDERED: IBUPROFEN 400 MG TABLET (FP) PO PRN (22:03)
[2019-06-19] MEDS ORDERED: MELATONIN 5 MG TABLETS PO PRN (22:03)
[2019-06-19] MEDS ORDERED: METHOCARBAMOL 500 MG TABLET PO PRN (22:03)
[2019-06-19] MEDS ORDERED: ONDANSETRON *ODT* 4 MG TABLET SL PRN (22:03)
[2019-06-19] MEDS ORDERED: MAG HYDROX/AL HYDROX/SIMETH 30 ML UNIT-DOSE CUP PO PRN (22:03)
[2019-06-19] MEDS: chlordiazePOXIDE HCL 25 MG CAPSULE PO SCH (23:02)
[2019-06-20] MEDS: hydrALAZINE HCL 50 MG TABLET (FP) PO SCH ×3 (06:00→23:06)
[2019-06-20] MEDS: GABAPENTIN 300 MG CAPSULE PO SCH ×3 (06:13→22:20)
[2019-06-20] MEDS: chlordiazePOXIDE HCL 25 MG CAPSULE PO SCH ×4 (06:14→22:20)
[2019-06-20] MEDS ORDERED: [UNRECOGNIZED DRUG - OTHER] PO SCH (10:00)
[2019-06-20 10:14] LABS: HEMATOCRIT 40.9 % (35.4-49); HEMOGLOBIN 13.6 GM/dL (11.7-16.9); MCH 28.1 pg (25.7-33.7); MCHC 33.3 g/dl (32.0-35.9); MEAN CELL VOLUME 84.3 fl (80-96); MEAN PLT VOLUME 8.5 fl (7.5-11.1); PLATELET COUNT 220 K/MM3 (134-434); RBC 4.85 M/mm3 (4.00-5.60); RDW 14.2 % (11.9-15.9); WHITE BLOOD COUNT 3.9 K/mm3 (4.0-10.0)
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
[2019-06-20 10:21] LABS: ALBUMIN 3.3 g/dl (3.4-5.0); BILIRUBIN,TOTAL 0.5 mg/dL (0.2-1); BLOOD UREA NITROGEN 19.8 mg/dL (7-18); CALCIUM 8.6 mg/dL (8.5-10.1); CREATININE 1.3 mg/dL (0.55-1.3); POTASSIUM 3.6 mmol/L (3.5-5.1); TOT PROT 7.2 g/dl (6.4-8.2)
[2019-06-20] MEDS ORDERED: cloNIDine HCL 0.1 MG TABLET PO PRN (10:35)
[2019-06-20] MEDS: PRENATAL VITAMINS W/ FOLIC ACID TABLET (FP) PO SCH (10:41)
[2019-06-20] MEDS: NICOTINE 14 MG/24 HOURS TOPICAL PATCH TD SCH (10:43)
--- NOTE | 2019-06-20 10:43 | PN ---
S CIWA - CIWA Score Nausea/Vomitin Muscle Tremors: 2 Anxiety: 2 Agitation: 2 Paroxysmal Sweats: No Perspiration Orientation: 0-Oriented Tacttile Disturbances: 1-Very Mild Itch/Numbness Auditory Disturbances: 0-None Visual Disturbances: 0-None Headache: 2-Mild CIWA-Ar Total Score: 11 BHS COWS - Scale Resting Pulse: 0= [place] 80 or Below Sweatin= No chills or Flushing Restless Observation: 1= Difficult to Sit Still Pupil Size: 1= Pupils >than Normal Bone or Joint Aches: 1= Mild Discomfort Runny Nose/ Eye Tearin= Nasal Congestion GI Upset > 30mins: 2= Nausea/Diarrhea Tremor Observation of Outstretched Hands: 2= Slight Tremor Visible Yawning Observation: 1= 1-2x During Session Anxiety or Irritability: 2=Irritable/Anxious Goose Flesh Skin: 0=Smooth Skin COWS Score: 11 S Progress Note (SOAP) Subjective: alert,irritable,anxious,interrupted sleep,pain in the body and back,patient last methadone is on 35 mgs po on 06/14/2019, patient did not want to be on methadone maintenance any more,will detox with methadone and librium regimen Objective: 06/20/19 10:42 Vital Signs Temperature 97.0 F L 06/20/19 09:43 Pulse Rate 68 06/20/19 09:43 Respiratory Rate 18 06/20/19 09:43 Blood Pressure 137/79 06/20/19 09:43 O2 Sat by Pulse Oximetry (%) 06/20/19 10:43 Laboratory Last Values WBC 3.9 K/mm3 (4.0-10.0) L 06/20/19 08:00 RBC 4.85 M/mm3 (4.00-5.60) 06/20/19 08:00 Hgb 13.6 GM/dL (11.7-16.9) 06/20/19 08:00 Hct 40.9 % (35.4-49) 06/20/19 08:00 MCV 84.3 fl (80-96) 06/20/19 08:00 MCH 28.1 pg (25.7-33.7) 06/20/19 08:00 MCHC 33.3 g/dl (32.0-35.9) 06/20/19 08:00 RDW 14.2 % (11.9-15.9) 06/20/19 08:00 Plt Count 220 K/MM3 (134-434) D 06/20/19 08:00 MPV 8.5 fl (7.5-11.1) 06/20/19 08:00 Sodium 139 mmol/L (136-145) 06/20/19 08:00 Potassium 3.6 mmol/L (3.5-5.1) 06/20/19 08:00 Chloride 108 mmol/L (98-107) H 06/20/19 08:00 Carbon Dioxide 24 mmol/L (21-32) 06/20/19 08:00 Anion Gap 8 MMOL/L (8-16) 06/20/19 08:00 BUN 19.8 mg/dL (7-18) H 06/20/19 08:00 Creatinine 1.3 mg/dL (0.55-1.3) 06/20/19 08:00 Est GFR (CKD-EPI)AfAm 73.74 06/20/19 08:00 Est GFR (CKD-EPI)NonAf 63.62 06/20/19 08:00 Random Glucose 120 mg/dL (74-106) H 06/20/19 08:00 Calcium 8.6 mg/dL (8.5-10.1) 06/20/19 08:00 Total Bilirubin 0.5 mg/dL (0.2-1) 06/20/19 08:00 AST 14 U/L (15-37) L 06/20/19 08:00 ALT 15 U/L (13-61) 06/20/19 08:00 Alkaline Phosphatase 91 U/L (45-117) 06/20/19 08:00 Total Protein 7.2 g/dl (6.4-8.2) 06/20/19 08:00 Albumin 3.3 g/dl (3.4-5.0) L 06/20/19 08:00 Assessment: 06/20/19 10:46 withdrawal symptom,continue detox methadone and librium regimen,patient last medicated methadone 35 mgs on 06/14/2019,did not want to be on methadone maintenance any more Plan: continue detox ,methadone and librium regimen,fasting glucose in am
[2019-06-20] MEDS ORDERED: METHADONE HCL 10 MG TABLET (FOR DETOX USE ONLY) PO ONE (11:00)
[2019-06-20] MEDS: ARIPiprazole 10 MG TABLET PO SCH (12:00)
[2019-06-20] MEDS: THIAMINE HCL 100 MG TABLET (FP) PO SCH (22:20)
[2019-06-20] MEDS: SUVOREXANT 10 MG TABLET PO PRN (22:23)
[2019-06-21] MEDS ORDERED: chlordiazePOXIDE HCL 25 MG CAPSULE PO SCH (05:00)
[2019-06-21] MEDS: chlordiazePOXIDE 5 MG CAPSULE PO SCH ×4 (05:42→22:25)
[2019-06-21] MEDS: GABAPENTIN 300 MG CAPSULE PO SCH ×3 (05:43→22:25)
[2019-06-21] MEDS: hydrALAZINE HCL 50 MG TABLET (FP) PO SCH ×3 (05:43→22:25)
[2019-06-21] MEDS ORDERED: METHADONE HCL 5 MG TABLET (FOR DETOX USE ONLY) PO ONE (10:00)
[2019-06-21] MEDS: ARIPiprazole 10 MG TABLET PO SCH (10:22)
[2019-06-21] MEDS: BICTEGRAV/EMTRICIT/TENOFOV (BIKTARVY) 50-200-25 MG TABLET PO SCH (10:22)
[2019-06-21] MEDS: PRENATAL VITAMINS W/ FOLIC ACID TABLET (FP) PO SCH (10:22)
[2019-06-21] MEDS: NICOTINE 14 MG/24 HOURS TOPICAL PATCH TD SCH (10:23)
--- NOTE | 2019-06-21 10:41 | PN ---
[facility] CIWA - CIWA Score Nausea/Vomitin-Mild Nausea/No Vomiting Muscle Tremors: 1-None Visible, but [place] Anxiety: 1-Mildly Anxious Agitation: 1-Slight > Activity Paroxysmal Sweats: No Perspiration Orientation: 0-Oriented Tacttile Disturbances: 1-Very Mild Itch/Numbness Auditory Disturbances: 0-None Visual Disturbances: 0-None S COWS - Scale Resting Pulse: 1= [place] 81-100 Sweatin= No chills or Flushing Restless Observation: 1= Difficult to Sit Still Pupil Size: 1= Pupils >than Normal Bone or Joint Aches: 1= Mild Discomfort Runny Nose/ Eye Tearin= Nasal Congestion GI Upset > 30mins: 1= Stomach Cramp Tremor Observation of Outstretched Hands: 1= Tremor [place], Not Seen Yawning Observation: 1= 1-2x During Session Anxiety or Irritability: 2=Irritable/Anxious Goose Flesh Skin: 0=Smooth Skin COWS Score: 10 [facility] Progress Note (SOAP) Subjective: alert,irritable,anxious,interrupted sleep,tremor,pain in the bidy Objective: 06/21/19 10:40 Vital Signs Temperature 98.2 F 06/21/19 08:48 Pulse Rate 89 06/21/19 08:48 Respiratory Rate 20 06/21/19 08:48 Blood Pressure 114/74 06/21/19 08:48 O2 Sat by Pulse Oximetry (%) 06/21/19 10:40 fasting glucose pending Assessment: 06/21/19 10:40 withdrawal symptom Plan: continue detox methadone and librium regimen,fasting glucose pending
[2019-06-21] MEDS: hydrOXYzine PAMOATE 25 MG CAPSULE (FP) PO PRN (18:16)
[2019-06-21] MEDS: THIAMINE HCL 100 MG TABLET (FP) PO SCH (22:28)
[2019-06-22] MEDS ORDERED: chlordiazePOXIDE HCL 10 MG CAPSULE PO PRN
[2019-06-22] MEDS: chlordiazePOXIDE HCL 10 MG CAPSULE PO SCH ×4 (07:41→22:21)
[2019-06-22] MEDS: hydrALAZINE HCL 50 MG TABLET (FP) PO SCH ×3 (07:41→22:22)
[2019-06-22] MEDS: GABAPENTIN 300 MG CAPSULE PO SCH ×3 (07:42→22:21)
[2019-06-22] MEDS ORDERED: METHADONE HCL 10 MG TABLET (FOR DETOX USE ONLY) PO ONE (10:00)
--- NOTE | 2019-06-22 10:09 | PN ---
[facility] CIWA - CIWA Score Nausea/Vomitin-Mild Nausea/No Vomiting Muscle Tremors: 1-None Visible, but [place] Anxiety: 2 Agitation: 2 Paroxysmal Sweats: No Perspiration Orientation: 0-Oriented Tacttile Disturbances: 1-Very Mild Itch/Numbness Auditory Disturbances: 0-None Visual Disturbances: 0-None Headache: 1-Very Mild CIWA-Ar Total Score: 8 BHS COWS - Scale Resting Pulse: 1= [place] 81-100 Sweatin= No chills or Flushing Restless Observation: 1= Difficult to Sit Still Pupil Size: 0= Normal to Room Light Bone or Joint Aches: 1= Mild Discomfort Runny Nose/ Eye Tearin= Nasal Congestion GI Upset > 30mins: 1= Stomach Cramp Tremor Observation of Outstretched Hands: 1= Tremor [place], Not Seen Yawning Observation: 1= 1-2x During Session Anxiety or Irritability: 2=Irritable/Anxious Goose Flesh Skin: 0=Smooth Skin COWS Score: 9 [facility] Progress Note (SOAP) Subjective: alert,irritable,anxious,interrupted sleep,pain in the body Objective: 06/22/19 10:08 Vital Signs Temperature 97.9 F 06/22/19 08:57 Pulse Rate 91 H 06/22/19 08:57 Respiratory Rate 18 06/22/19 08:57 Blood Pressure 124/98 06/22/19 08:57 O2 Sat by Pulse Oximetry (%) Laboratory Results - last 24 hr 06/21/19 07:45 Fasting Glucose 81 Assessment: 06/22/19 10:09 withdrawal symptom Plan: continue detox methadone and librium regimen
[2019-06-22] MEDS: NICOTINE 14 MG/24 HOURS TOPICAL PATCH TD SCH (11:03)
[2019-06-22] MEDS: BICTEGRAV/EMTRICIT/TENOFOV (BIKTARVY) 50-200-25 MG TABLET PO SCH (11:04)
[2019-06-22] MEDS: ARIPiprazole 10 MG TABLET PO SCH (11:04)
[2019-06-22] MEDS: PRENATAL VITAMINS W/ FOLIC ACID TABLET (FP) PO SCH (11:05)
[2019-06-22] MEDS: hydrOXYzine PAMOATE 25 MG CAPSULE (FP) PO PRN (19:33)
[2019-06-22] MEDS: THIAMINE HCL 100 MG TABLET (FP) PO SCH (22:21)
[2019-06-22] MEDS: SUVOREXANT 10 MG TABLET PO PRN (22:22)
[2019-06-23] MEDS: hydrALAZINE HCL 50 MG TABLET (FP) PO SCH ×3 (05:35→21:53)
[2019-06-23] MEDS: GABAPENTIN 300 MG CAPSULE PO SCH ×3 (05:35→21:54)
[2019-06-23] MEDS: chlordiazePOXIDE HCL 10 MG CAPSULE PO SCH ×2 (05:35→18:41)
[2019-06-23] MEDS ORDERED: METHADONE HCL 5 MG TABLET (FOR DETOX USE ONLY) PO ONE (06:00)
[2019-06-23] MEDS: BICTEGRAV/EMTRICIT/TENOFOV (BIKTARVY) 50-200-25 MG TABLET PO SCH ×2 (11:58→11:59)
[2019-06-23] MEDS: NICOTINE 14 MG/24 HOURS TOPICAL PATCH TD SCH (11:58)
[2019-06-23] MEDS: PRENATAL VITAMINS W/ FOLIC ACID TABLET (FP) PO SCH (11:58)
[2019-06-23] MEDS: ARIPiprazole 10 MG TABLET PO SCH (11:59)
--- NOTE | 2019-06-23 14:37 | PN ---
[facility] CIWA - CIWA Score Nausea/Vomitin-Mild Nausea/No Vomiting Muscle Tremors: 1-None Visible, but [place] Anxiety: 1-Mildly Anxious Agitation: 1-Slight > Activity Paroxysmal Sweats: No Perspiration Orientation: 0-Oriented Tacttile Disturbances: 0-None Auditory Disturbances: 0-None Visual Disturbances: 0-None Headache: 1-Very Mild CIWA-Ar Total Score: 5 BHS COWS - Scale Resting Pulse: 0= [place] 80 or Below Sweatin= No chills or Flushing Restless Observation: 1= Difficult to Sit Still Pupil Size: 1= Pupils >than Normal Bone or Joint Aches: 1= Mild Discomfort Runny Nose/ Eye Tearin= Runny Nose/Eyes GI Upset > 30mins: 1= Stomach Cramp Tremor Observation of Outstretched Hands: 2= Slight Tremor Visible Yawning Observation: 1= 1-2x During Session Anxiety or Irritability: 1=Feels Anxious/Irritable Goose Flesh Skin: 0=Smooth Skin COWS Score: 10 S Progress Note (SOAP) Subjective: alert,irritable,anxious,interrupted sleep,pain in the body Objective: 06/23/19 14:35 Vital Signs Temperature 98.1 F 06/23/19 10:08 Pulse Rate 77 06/23/19 10:08 Respiratory Rate 18 06/23/19 10:08 Blood Pressure 114/76 06/23/19 10:08 O2 Sat by Pulse Oximetry (%) Assessment: 06/23/19 14:35 withdrawal symptom Plan: continue detox methadone and librium regimen,possible transfer to rehab in am for possible further level of care
[2019-06-23] MEDS: SUVOREXANT 10 MG TABLET PO PRN (21:53)
[2019-06-23] MEDS: THIAMINE HCL 100 MG TABLET (FP) PO SCH (21:53)
[2019-06-24] MEDS ORDERED: chlordiazePOXIDE HCL 10 MG CAPSULE PO ONE (05:00)
[2019-06-24] MEDS: hydrALAZINE HCL 50 MG TABLET (FP) PO SCH (05:47)
[2019-06-24] MEDS: GABAPENTIN 300 MG CAPSULE PO SCH (05:47)
[2019-06-24 09:51] VITALS: BP 129/88; PULSE 97; TEMP 97.3
[2019-06-24] MEDS: BICTEGRAV/EMTRICIT/TENOFOV (BIKTARVY) 50-200-25 MG TABLET PO SCH (10:45)
[2019-06-24] MEDS: NICOTINE 14 MG/24 HOURS TOPICAL PATCH TD SCH (10:45)
[2019-06-24] MEDS: ARIPiprazole 10 MG TABLET PO SCH (10:45)
[2019-06-24] MEDS: PRENATAL VITAMINS W/ FOLIC ACID TABLET (FP) PO SCH (10:45)
--- NOTE | 2019-06-24 12:25 | DS ---
[facility] Detox Discharge Summary Admission Date: 06/19/19 Discharge Date: 06/24/19 - History Present History: Alcohol Dependence Pertinent Past History: Pt admitted for alcohol detox. Pt with history of polysubstance use- and was readmitted after a rehab discharge. Pt to be admitted to rehab at today. h/o HIV and h/o weight reduction gastric procedure Vital Signs - 24 hr 06/23/19 06/23/19 06/24/19 13:49 20:30 03:46 Temperature 97.9 F 97.7 F Pulse Rate 87 87 Respiratory 19 18 18 Rate Blood Pressure 127/82 143/92 06/24/19 06/24/19 07:18 09:13 Temperature 97.7 F 97.3 F L Pulse Rate 79 97 H Respiratory 18 18 Rate Blood Pressure 125/69 129/88 Laboratory Tests 06/20/19 06/20/19 06/20/19 08:00 08:00 08:00 WBC 3.9 L RBC 4.85 Hgb 13.6 Hct 40.9 MCV 84.3 MCH 28.1 MCHC 33.3 RDW 14.2 Plt Count 220 D MPV 8.5 Sodium 139 Potassium 3.6 Chloride 108 H Carbon Dioxide 24 Anion Gap 8 BUN 19.8 H Creatinine 1.3 Est GFR (CKD-EPI)AfAm 73.74 Est GFR (CKD-EPI)NonAf 63.62 Random Glucose 120 H Fasting Glucose Calcium 8.6 Total Bilirubin 0.5 AST 14 L ALT 15 Alkaline Phosphatase 91 Total Protein 7.2 Albumin 3.3 L RPR Titer Nonreactive 06/21/19 07:45 WBC RBC Hgb Hct MCV MCH MCHC RDW Plt Count MPV Sodium Potassium Chloride Carbon Dioxide Anion Gap BUN Creatinine Est GFR (CKD-EPI)AfAm Est GFR (CKD-EPI)NonAf Random Glucose Fasting Glucose 81 Calcium Total Bilirubin AST ALT Alkaline Phosphatase Total Protein Albumin RPR Titer a/p AUD-completed detox- to rehab today - Physical Exam Results Vital Signs: Vital Signs Temperature 97.3 F L 06/24/19 09:13 Pulse Rate 97 H 06/24/19 09:13 Respiratory Rate 18 06/24/19 09:13 Blood Pressure 129/88 06/24/19 09:13 O2 Sat by Pulse Oximetry (%) - Treatment Hospital Course: Detox Protocol Followed, Detoxed Safely - Medication Discharge Medications: Ambulatory Orders Aripiprazole [Abilify] 10 mg PO DAILY 03/05/15 Albuterol Sulfate Inhaler - [Ventolin HFA Inhaler -] 0 puff IH Q4HPO PRN #1 inhaler 03/21/15 Omeprazole [Prilosec] 40 mg PO DAILY 12/25/15 Pregabalin [Lyrica -] 100 mg PO TID 12/25/15 Valacyclovir HCl [Valtrex -] 1,000 mg PO BID 12/25/15 hydrALAZINE HCL [Apresoline -] 50 mg PO TID 12/25/15 Venlafaxine HCl ER [Effexor Xr -] 37.5 mg PO DAILY #30 cap.er.24h 12/26/15 Bictegrav/Emtricit/Tenofov Ala [Biktarvy 50-200-25 mg Tablet] 1 mg PO DAILY Gabapentin 300 mg PO TID 06/19/19 - AMA Did Patient Leave Against Medical Advice: No
== END 2019-06-24 12:05 | disposition other institution (70) | DRG 897 ==
LOC: YASAS 19:47 → Y6N 22:21
PROVIDERS: ADMIT Allergy & Immunology; ATTEND Allergy & Immunology
PROC: HZ2ZZZZ Detoxification Services for Substance Abuse Treatment (ICD-10-PCS; principal; 2019-06-19)
DX: F10.230 Alcohol dependence with withdrawal, uncomplicated (principal); F11.20 Opioid dependence, uncomplicated; F14.20 Cocaine dependence, uncomplicated; F15.20 Other stimulant dependence, uncomplicated; F33.1 Major depressive disorder, recurrent, moderate; F19.282 Other psychoactive substance dependence with psychoactive substance-induced sleep disorder; J45.22 Mild intermittent asthma with status asthmaticus; F12.20 Cannabis dependence, uncomplicated; F17.210 Nicotine dependence, cigarettes, uncomplicated; F19.24 Other psychoactive substance dependence with psychoactive substance-induced mood disorder; I10 Essential (primary) hypertension; K21.9 Gastro-esophageal reflux disease without esophagitis; G62.9 Polyneuropathy, unspecified; R63.4 Abnormal weight loss; Z68.33 Body mass index [BMI] 33.0-33.9, adult; Z98.84 Bariatric surgery status; Z62.810 Personal history of physical and sexual abuse in childhood
CPT/HCPCS: 36415; 80053; 82947; 85027; 86593; J0735